=== PATIENT | male | born 1960 | race Caucasian/White ===

== ENCOUNTER 2021-05-15 06:25 | Day surgery (SDC) | payer BC, SELFPAY ==
[2021-05-08 14:47] VITALS: BMI 30.8
--- NOTE | 2021-05-12 12:24 | HO.ANESPROP2 ---
Documented by User: Celestina Cervantes NP 05/12/21 12:24 HPI - Anesthesia Eval Consult details Narrative: 61yo M for Upper Endoscopy and Colonoscopy [facility] Past Medical History Medical History Anxiety Arthritis Barretts esophagus COPD (chronic obstructive pulmonary disease) Elevated cholesterol GERD (gastroesophageal reflux disease) Hiatal hernia HTN (hypertension) Renal calculi Surgical History Surgical History H/O colonoscopy History of ankle surgery History of esophagogastroduodenoscopy (EGD) History of repair of hiatal hernia Hx of excision of mass Hx of right inguinal hernia repair Social History Social History Patient Tobacco Use Status: Former Tobacco user Quit Date: age 31 Tobacco use type: Cigarette Advance Directives Information Provided: Yes (informational brochure mailed) Advance Directives on File: No Meds Allergies Allergy/AdvReac Type Severity Reaction Status Date / Time No Known Allergies Allergy Verified 05/08/21 14:43 [No Known Allergies*] Home Medications Medication Instructions Recorded Confirmed Last Taken Type atorvastatin 20 mg tablet 20 mg PO DAILY 05/08/21 05/08/21 Unknown History lorazepam 1 mg tablet 1 mg PO BID PRN 05/08/21 05/08/21 Unknown History metoprolol succinate 50 mg 1 tab PO DAILY 05/15/21 05/15/21 05/15/21 History tablet,extended release 24 hr Exam Exam Date and Time: May 12, 2021 1224 Height,Weight and Vital Signs: Height 5 ft 9 in Weight 94.801 kg Assessment and Plan Assessment Anesthesia Assessment: Chart Reviewed Documented by User: Karolyn Young MD 05/15/21 07:42 [facility] Past Medical History Medical History Anxiety Arthritis Barretts esophagus COPD (chronic obstructive pulmonary disease) Elevated cholesterol GERD (gastroesophageal reflux disease) Hiatal hernia HTN (hypertension) Renal calculi Functional capacity: wheelchair bound Surgical History Surgical History H/O colonoscopy History of ankle surgery History of esophagogastroduodenoscopy (EGD) History of repair of hiatal hernia Hx of excision of mass Hx of right inguinal hernia repair History of Problems with Anesthesia: No Social History Social History Patient Tobacco Use Status: Former Tobacco user Quit Date: age 31 Tobacco use type: Cigarette Advance Directives Information Provided: Yes (informational brochure mailed) Advance Directives on File: No Meds Allergies Allergy/AdvReac Type Severity Reaction Status Date / Time No Known Allergies Allergy Verified 05/08/21 14:43 [No Known Allergies*] Home Medications Medication Instructions Recorded Confirmed Last Taken Type atorvastatin 20 mg tablet 20 mg PO DAILY 05/08/21 05/08/21 Unknown History lorazepam 1 mg tablet 1 mg PO BID PRN 05/08/21 05/08/21 Unknown History metoprolol succinate 50 mg 1 tab PO DAILY 05/15/21 05/15/21 05/15/21 History tablet,extended release 24 hr Exam Airway Mallampati Class: II TM Dist: >3cm Neck ROM: Full Loose/Missing/Broken Teeth: No Heart: RRR Lungs: CTA Assessment and Plan Assessment Anesthesia Assessment: Anesthesia Plan Discussed Final Anesthetic Review History of Problems with Anesthesia: No NPO: Yes ASA Class: II Final Preanesthetic Review: Meds/Allgs Chart Reviewed, Consent Obtained/Reviewed and Anes Risks/Benef Reviewed Patient Risk: Low Procedure Risk: Intermediate Anesthetic Plan Anesthetic Plan: MAC: Disposition: Standard PACU
[2021-05-15 06:48] VITALS: BP 160/101; PULSE 98; RESP 16; TEMP 36.9; O2SAT 97
[2021-05-15 06:56] VITALS: BP 154/103; PULSE 86; RESP 16
[2021-05-15] MEDS: Lactated Ringers 1,000 ML 100 ML IVCONT (06:56)
[2021-05-15 08:40] VITALS: BP 105/73; PULSE 75; RESP 16; TEMP 36.9; O2SAT 96
--- NOTE | 2021-05-15 08:42 | PM.OP ---
Brief Operative Note Date of Service: 05/15/21 Pre-op diagnosis: Fan's esophagus, Screening Post-op diagnosis: other (Gastritis, Small HH, Small areas of Fan's esophagus, Colon polyps) Procedure: EGD with bx, Colonoscopy to the cecum w/bx removal of polyps Surgeon: Derik Drummond Anesthesia: MAC Was an Rabbit Breeder used for this Procedure?: No Estimated blood loss (mL): 3.0 Pathology: other (A. Gastric antrum B. EG Junction at 37cm C. Cecal polyp D. Polyp at 50cm E. Polyp at 20cm) Condition: stable Disposition: PACU
[2021-05-15 08:55] VITALS: BP 134/92; PULSE 76; RESP 16; TEMP 36.9; O2SAT 99
--- NOTE | 2021-05-15 14:51 | OP_ITS ---
SURGEON: Derik Drummond MD INDICATIONS: The patient presents for evaluation of Fan's esophagus and personal history of colon polyps. Full consent has been obtained from him for both procedures, including risks of bleeding and perforation. PREOPERATIVE DIAGNOSIS: POSTOPERATIVE DIAGNOSIS: PROCEDURE PERFORMED: Esophagogastroduodenoscopy with biopsies, and colonoscopy to the cecum with biopsy and removal of polyps. ESTIMATED BLOOD LOSS: COMPLICATIONS: ANESTHESIA: Monitored anesthesia care. ASSISTANTS: SPECIMENS: PREOPERATIVE DIAGNOSES: History of Fan's esophagus, personal history of tubular adenoma of the colon, and colorectal cancer screening. POSTOPERATIVE DIAGNOSES: History of Fan's esophagus, personal history of tubular adenoma of the colon, and colorectal cancer screening, small hiatal hernia, mild gastritis, small colon polyps, diverticulosis, and internal hemorrhoids. DESCRIPTION OF PROCEDURE: The patient was placed in the left lateral decubitus position. The Olympus video gastroscope was passed in the posterior oropharynx and upper esophagus under direct vision. The scope was passed slowly into the distal esophagus. The gastroesophageal junction appeared at 37 cm. This area was slightly irregular with less than 1 cm areas of possible Fan's mucosa. There was no evidence of any esophagitis, lesions, nor ulceration. The scope entered into the stomach. There was an evidence of small hiatal hernia, and the scope was advanced to the pylorus. The duodenum was cannulated the descending portion. The duodenum including the bulb appeared normal without mass or ulceration. The scope was withdrawn back into the stomach. The gastric antrum had some mild areas of erythema and edema with minimal friability. There were no erosions or ulceration. There was good peristalsis. Biopsies were obtained from the antrum. The scope was retroflexed visualizing the proximal stomach carefully, which appeared normal, without any sign of mass or ulceration. The previous fundoplication anatomy appeared intact. The scope was straightened out and withdrawn back in the esophagus. Multiple biopsies were obtained at the EG junction at 37 cm from the areas of probable Fan's mucosa. Proximal to this, the esophageal mucosa appeared normal. The scope was withdrawn from the patient. He was turned around for colonoscopy. The digital rectal exam revealed no abnormalities. The Olympus video pediatric colonoscope was entered into the rectum and advanced easily to the cecum. Once in the cecum, I did identify normal-appearing cecal pouch other than a 4 mm polyp in the cecum, which was biopsied and completely removed with cold biopsy forceps. The remainder of the cecum, including the appendiceal orifice and ileocecal valve appeared normal. The scope was slowly withdrawn assessing all mucosal surfaces carefully. Preparation was excellent. At 50 cm and at 20 cm, were flat less than 5 mm polyps, which were each biopsied and completely removed with cold biopsy forceps. I did not visualize any other polyps, colitis, nor angiodysplasia. There was a mild amount of sigmoid diverticulosis. In the rectum, scope was retroflexed visualizing internal hemorrhoids, but no other pathology. The rectal mucosa appeared normal. The scope was straightened out and withdrawn from the patient. He tolerated the procedure well and was returned to the recovery area in stable condition. IMPRESSION: 1. History of Fan's esophagus, rule out dysplasia. 2. Small hiatal hernia. 3. Mild gastritis. 4. Small colon polyps, status post biopsy and removal. 5. Diverticulosis. 6. Internal hemorrhoids. PLAN: The results of the biopsy will be checked. I would recommend a repeat colonoscopy in 5 years for further surveillance. If there is no dysplasia within the Fan's mucosa, I would recommend a repeat upper endoscopy in 3 years. He was advised not to use any aspirin and NSAIDs for 1 week. This has been discussed with his . MD DONYA Morris/SERENA / [id number]
== END 2021-05-15 09:32 | disposition home or self-care (01) ==
PROVIDERS: PCP Internal Medicine; Visit Provider Internal Medicine
PROC: (CPT 45380; principal; 2021-05-15 07:30)
DX: Z12.11 Encounter for screening for malignant neoplasm of colon (principal); Z86.010 Personal history of colon polyps; D12.0 Benign neoplasm of cecum; D12.5 Benign neoplasm of sigmoid colon; K57.30 Diverticulosis of large intestine without perforation or abscess without bleeding; K64.8 Other hemorrhoids; K21.9 Gastro-esophageal reflux disease without esophagitis; K29.50 Unspecified chronic gastritis without bleeding; K22.70 Barrett's esophagus without dysplasia; Z80.0 Family history of malignant neoplasm of digestive organs; I10 Essential (primary) hypertension; J44.9 Chronic obstructive pulmonary disease, unspecified; Z79.899 Other long term (current) drug therapy; Z87.891 Personal history of nicotine dependence
CPT/HCPCS: 45380; 43239; 88305; 88342; J2250; J3010

== ENCOUNTER 2022-03-24 08:22 | Outpatient (REF) | payer BC, SELFPAY ==
[2022-03-24 08:45] LABS: MANUAL DIFF FLAG NO
[2022-03-24 09:12] LABS: Basophils Absolute Auto 0.1 X10*3/uL (0.0-0.2); Eosinophils Absolute Auto 0.2 X10*3/uL (0.0-0.4); Eosinophils Percent Auto 3.1 % (0-4); Hematocrit 44.6 % (42.0-52.0); Hemoglobin 15.4 g/dl (14.0-18.0); Imm Gran Abs Auto 0.01 X10*3/uL (0.00-0.03); Imm Gran Pct Auto 0.2 % (0.0-0.4); Lymphocytes Absolute Auto 1.7 X10*3/uL (1.2-4.9); Mean Corpuscular HGB Conc 34.5 g/dl (31.0-36.0); Mean Corpuscular Hemoglobin 33.1 pg (27.0-33.0); Mean Corpuscular Volume 95.9 fL (80.0-98.0); Mean Platelet Volume 9.5 fL (9.4-12.4); Monocytes Absolute Auto 0.5 X10*3/uL (0.1-1.2); Monocytes Percent Auto 9.4 % (2-11); Neutrophils Absolute Auto 2.8 x10*3/uL (2.0-8.3); Neutrophils Percent Auto 53.3 % (45-73); Platelet Count 238 X10*3/uL (160-400); Red Blood Count 4.65 X10*6/uL (4.60-5.80); Red Cell Distribution Width 12.9 % (11.0-16.0); White Blood Count 5.2 X10*3/uL (4.8-10.8)
[2022-03-24 09:24] LABS: Appearance Urine Clear; Color Urine Yellow; Glucose Urine UA Negative (Negative); Leukocyte Esterase Urine Trace (Negative); Nitrite Urine Negative (Negative); PH 6.5 (5.0-9.0); UMIC TRIGGER UA YES; Urine Blood Negative (Negative); Urine Ketones Negative (Negative); Urine Protein Negative (Neg-Trace)
[2022-03-24 09:27] LABS: Bacteria Urine None Seen (None Seen); Hyaline Casts Urine 0-2 /LPF (0-2); Squamous Epithelial Cell Urine 0-2 /HPF (0-2); WBC Urine 0-5 /HPF (0-5)
[2022-03-24 09:51] LABS: Alanine Aminotransferase 30 U/L (0-40); Albumin Level 4.2 g/dL (3.5-5.0); Alkaline Phosphatase 81 U/L (39-117); Anion Gap 15 (12-20); Aspartate Amino Transferase 24 U/L (5-37); Blood Urea Nitrogen 18 mg/dL (9-16); Calcium 9.7 mg/dL (8.4-10.2); Carbon Dioxide 27 mmol/L (22-29); Chloride 106 mmol/L (96-108); Cholesterol 151 mg/dL; Estimated Glomerular Filt Rate > 60; Glucose Random 101 mg/dL (60-115); HDL Cholesterol 69 mg/dL; LDL Cholesterol Calculated 73 mg/dl; Potassium 4.9 mmol/L (3.3-5.1); Sodium 143 mmol/L (135-145); Triglycerides 45 mg/dL
[2022-03-24 10:13] LABS: Free T4 (Free Thyroxine) 0.96 ng/dL (0.71-1.85); Prostate Specific Antigen 0.64 ng/mL (<0.05-4.0); Thyroid Stimulating Hormone 0.54 uIU/mL (0.32-4.0)
== END 2022-03-24 08:23 | disposition home or self-care (01) ==
LOC: HO.LAB 08:22
PROVIDERS: PCP Internal Medicine; Visit Provider Internal Medicine
DX: E78.00 Pure hypercholesterolemia, unspecified (principal); R53.81 Other malaise; R53.83 Other fatigue; R35.1 Nocturia; Z12.5 Encounter for screening for malignant neoplasm of prostate
CPT/HCPCS: 36415; 80053; 80061; 81001; 84153; 84439; 84443; 85025

== ENCOUNTER 2022-12-28 11:51 | Outpatient (REF) | payer BC, SELFPAY ==
--- NOTE | ~2022-12-28 | XR_ITS ---
EXAMINATION: XR CHEST CLINICAL INFORMATION: Dyspnea COMPARISON: Previous chest x-ray most recent June [address] most recent December 2017 TECHNIQUE: 2 views of the chest were obtained. FINDINGS: No significant abnormality is noted involving the heart, lungs, mediastinum, bony thorax or soft tissues. Degenerative changes of the spine. XR/XR chest 2V IMPRESSION: No evidence for acute disease in the chest.
--- NOTE | ~2022-12-28 | XR_ITS ---
EXAMINATION: XR HAND, RIGHT CLINICAL INFORMATION: Pain in right hand COMPARISON: None available. TECHNIQUE: PA, lateral, and oblique views, 4 views total, of the right hand. FINDINGS: Moderate degenerative changes in the first carpometacarpal joint with joint space narrowing and hypertrophic change. Tiny corticated ossicle at the radial aspect of the first carpometacarpal joint of indeterminate age. STT degenerative changes. Possible tiny faint calcification/ossicle in the soft tissues at the ulnar aspect of the wrist. Moderate degenerative changes with joint space narrowing and hypertrophic change most notable in the first IP, second DIP, third DIP, first MCP and second metacarpophalangeal joints. XR/XR hand RT min 3V IMPRESSION: Degenerative changes in the wrist and scattered IP joints as detailed above. Soft tissue calcifications as described. Recommend follow-up imaging in 10-14 days if fracture is suspected.
== END 2022-12-28 11:52 | disposition home or self-care (01) ==
LOC: HO.XRAY 11:51
PROVIDERS: Visit Provider Internal Medicine
DX: R06.09 Other forms of dyspnea (principal); M79.641 Pain in right hand
CPT/HCPCS: 71046; 73130

== ENCOUNTER 2023-04-18 08:20 | Outpatient (AMB) | payer BC, SELFPAY ==
--- NOTE | 2023-04-18 08:33 | A.OFFVIS_ITS ---
Intake Vital Signs 04/18/23 08:34 Height 5 ft 9 in Weight 208 lb 1.862 oz BMI 30.7 BP 130/88 Blood Pressure Location Lt brachial Position Sitting Pulse 85 Intake Visit Reasons: NPV/Dyspnea/Dr. Blankenship Intake Note: NPV Destination Coordinator Required: No Accompanied by: Self / Same As Patient Allergies No Known Allergies [No Known Allergies*] Allergy (Verified 04/18/23 08:34) Medication List - Last Reconciled 04/18/23 by Emeka Coy MD alfuzosin ER 10 mg PO DAILY atorvastatin 20 mg PO DAILY celecoxib mg PO BID lorazepam 1 mg PO BID PRN metoprolol succinate ER 50 mg PO DAILY HPI HPI Comments History of Present Illness Details Timoteo is here for consultation regarding shortness of breath. No known coronary artery disease or myocardial infarction or cardiomyopathy. Prior history of smoking and he also has COPD. He states that he does get short of breath with activity. This has been going on for many years, off and on. When he was in [place], he was apparently exerting a lot and climbing as much as 5 flights of stairs. That seems a lot but he states that he was getting very short of breath at those times. At other instances, even shorter distances making short of breath. No clear anginal-type chest pains. He has been re ferred here for evaluation of cardiac causes of symptoms. [facility] Medical History Anxiety Arthritis Barretts esophagus COPD (chronic obstructive pulmonary disease) Elevated cholesterol GERD (gastroesophageal reflux disease) Hiatal hernia HTN (hypertension) Renal calculi Surgical History Hx of excision of mass History of repair of hiatal hernia History of ankle surgery Hx of right inguinal hernia repair History of esophagogastroduodenoscopy (EGD) H/O colonoscopy Family History (Updated 04/18/23 @ 08:37 by Diana Contreras) Maternal Grandfather Heart attack Mother No problems noted. Father No problems noted. Social History (Updated 04/18/23 @ 08:38 by Diana Contreras) Alcohol intake: current Alcohol intake frequency: 0-2 drinks per day Alcohol type: beer Patient Tobacco Use Status: Former Tobacco user Quit Date: age 31 Tobacco use type: Cigarette Review of Systems Const Denies chills, Denies daytime sleepiness, Denies fatigue, Denies fever(s), Denies frequent falls, Denies night sweats, Denies snoring, Denies weakness, Denies weight gain and Denies weight loss Eyes Denies loss of vision ENT Denies dizziness and Denies hearing loss Card Denies chest pain, Denies chest pain with activity, Denies syncope, Denies rapid heart rate, Denies edema, Denies claudication, Denies leg edema, Denies lightheadedness, Denies palpitations, Denies dyspnea, Denies dyspnea on exertion and Denies orthopnea Resp Denies cough, Denies excessive phlegm production, Denies dyspnea, Denies dyspnea on exertion, Denies snoring and Denies wheezing GI Denies abdominal pain, Denies hematochezia, Denies change in bowel habits, Denies change in stool character, Denies heartburn, Denies nausea and Denies vomiting Denies hematuria, Denies dysuria and Denies urinary frequency Musc Denies arthralgias, Denies muscle weakness, Denies numbness and Denies tingling Skin/Breast Denies nail changes and Denies rash Neuro Denies Abnormal speech present, Denies dizziness, Denies syncope, Denies frequent falls, Denies loss of vision, Denies memory loss, Denies numbness, Denies tingling and Denies weakness Psych Denies depression and Denies memory loss Endo Denies fatigue and Denies palpitations Aller/Immun Denies wheezing Physical Exam Vital Signs: Last Vital Signs Pulse 85 04/18/23 08:34 BP 130/88 04/18/23 08:34 BMI result Body Mass Index 30.7 Const General: comfortable and no acute distress Orientation/consciousness: patient oriented x3 HEENT Other: Unremarkable Head: Yes normal to inspection Neck Neck: Yes normal visual inspection Chest Chest palpation & inspection: normal inspection of the chest Resp Auscultation: clear to auscultation bilaterally Cardio Palpation: normal PMI Heart sounds: S1 normal heart sound present, S2 normal heart sound present, no gallops, no murmurs and no rubs GI Palpation (GI): Soft to palpation Back/Spine/Pelvis Other: unremarkable Skin General skin exam: no rashes or lesions noted Neuro General: patient oriented x3 Speech: No Abnormal speech present Extrem General: Yes normal to inspection Psych Mental Status: mental status grossly normal Assessment & Plan Assessment & Plan (1) Shortness of breath: Code(s): R06.02 - Shortness of breath Plan EKG from PCP shows sinus rhythm at 65/Min; no significant ST-T changes and otherwise unremarkable. Normal LA and corrected QT. From cardiac standpoint, will need assessment for cardiomyopathy as well as coronary disease. We can get echocardiogram and stress test for further evaluation. If these come back unremarkable, then etiology of shortness of breath could be just COPD/deconditioning. Plan discussed with patient and he is agreeable for the same. Follow-up after testing. Orders: Orders CA stress test Today I25.10 - Atherosclerotic heart disease of [place] coronary artery without angina pectoris, R06.02 - Shortness of breath CA echo transthoracic complete Today R06.02 - Shortness of breath NM cardiolite stress test Today R06.02 - Shortness of breath Coding Level of Care Code New Pt Level 4 (95740) Diagnoses Shortness of breath R06.02
[2023-04-18 08:34] VITALS: BP 130/88; PULSE 85; BMI 30.7
== END 2023-04-18 08:49 | disposition home or self-care (01) ==
PROVIDERS: PCP Internal Medicine; Visit Provider Internal Medicine
DX: R06.02 Shortness of breath (principal)
CPT/HCPCS: 99204

== ENCOUNTER → 2023-04-18 08:20 | Outpatient (BNVA) | payer BC, SELFPAY | PROVIDERS: PCP Internal Medicine; Visit Provider Internal Medicine ==

== ENCOUNTER → 2023-06-04 07:46 | Outpatient (REF) | payer BC, SELFPAY ==
--- NOTE | ~2023-06-04 | NM_ITS ---
Myocardial perfusion study Indication: Shortness of breath evaluate for myocardial ischemia Technique: The patient was brought in for a Lexiscan perfusion study on 06/04/2023. Patient performed low-level exercise and was injected 0.4 mg of Lexiscan intravenously. Within a minute of injection, 35 mCi of sestamibi was given intravenously. Images were obtained using the SPECT gamma camera interlaced with the gating device. Images were obtained in supine position. Resting perfusion study was performed on 06/07/2023. Patient was administered 35 mCi of sestamibi intravenously at rest. Images were then obtained in supine position. Images obtained with and without CT attenuation. Total DLP 89 mGy-cm. Images were processed with the software and compared side to side in short axis, horizontal long axis and vertical long axis views. Findings: The stress perfusion study showed non attenuated images show mildly reduced uptake in the inferior wall of the LV myocardium. Remainder of the LV myocardium is normally perfused. Attenuation corrected images show normal uptake of radiotracer in all segments of LV myocardium. The gated study shows normal LV systolic function with calculated LVEF of 58%. LV cavity is normal in size. The gated study shows normal systolic wall thickening and contraction of segments. Resting study shows no change in perfusion pattern compared to stress perfusion study. Gating at rest reveals normal systolic wall motion with ejection fraction at 53%. The findings are consistent with normal myocardial perfusion. NM/NM cardiolite stress test Impression: 1. Myocardial perfusion imaging study shows normal myocardial perfusion 2. Gated LVEF is 58% 3. Transient ischemic dilatation not present EKG is nondiagnostic for ischemia
--- NOTE | 2023-06-04 07:50 | CA_ITS ---
Acquisition Time: 2023-06-04 08:46:39 Total Exercise Time: 00:05:34 Test Indications: Dyspnea Medications: ATORVASTATIN CELEBREX METOPROLOL LORAZAPAM Protocol: JASPREET Max HR: 125 BPM 79% of Pred: 157 BPM Max BP: 200/090 mmHG Max Work Load: 7.0 METS Exercise stress test exercise 5 min 34 sec of jaspreet protocol achieiving 78% MPHR, with moderate SOB, no chest discomfort, without arrhythmias, with max BP 200/90, with nondiagnostic EKGs. PT assisted to sitting position and breathing returned to normal. Once breathing and BP returned to baseline test changed to pharmacological stress test with Lexiscan, with mild SOB., no chest discomfort, without arrhythmias,with normotensive response to injection, with nondiagnositic EKGs. Aminophyline 75mg IVP given to reverse Lexiscan. Test reviewed with Dr. Sanchez. Referred By: Emeka Coy Overread By: Aditi Mauro
--- NOTE | 2023-06-04 07:50 | CA_ITS ---
Transthoracic Echocardiogram Patient (Last, First, Middle): Timoteo John D Gender: Male Date of : 1960 Age: 63 Procedure Date: 06/04/2023 Procedure Type: Transthoracic Echocardiogram Location: OP Height: 170.18 cm Weight: 97.52 kg BSA: 2.09 m2 Heart Rate: bpm BP: 126 / 82 mmHg Slag Wheeler: TO Referring MD: Emeka Coy MD [employer] Operator: Angel Marcos MD Symptoms: R06.02 - Shortness of breath Study Quality: Adequate ECG Rhythm: Sinus Conclusions: - 1. Normal LV ejection fraction of 55-60% with normal filling pattern 2. Normal cardiac valvular Dopplers 3. Mildly dilated ascending aorta at 4 cm 5. No gross pericardial effusion Findings Left Ventricle Normal left ventricular size, thickness, and systolic function. The visually estimated ejection fraction is between 55-60%. Spectral Doppler is indicative of a normal filling pattern. Peak GLS is -17.2%, borderline low. Right Ventricle Normal right ventricular cavity size and systolic function. Atria Both atria are normal in size. There is no evidence of interatrial shunt. Aortic Valve Normal aortic valve structure and function. There is no aortic valve stenosis. There is no aortic valve regurgitation. Mitral Valve Normal mitral valve structure and function. There is trace mitral valve regurgitation. There is no mitral valve stenosis. Pulmonic Valve The pulmonic valve is likely normal. There is trace pulmonic valve regurgitation. Tricuspid Valve Likely normal tricuspid valve structure and function. Tricuspid regurgitation envelope is inadequate for calculation of right ventricular systolic pressure. Normal right atrial pressure. Great Vessels The pulmonary artery was not well visualized. There is mild dilatation of the ascending aorta measuring 4.00 cm. Venous The inferior vena cava is normal in size and collapses greater than 50% with inspiration. Pericardium/Pleural There is no evidence of pericardial effusion. Prior Study Comparison No prior study available for comparison. Measurements 2D Linear Measurements IVSd: 0.91 0.6-0.9/0.6-1.0 cm LVIDd: 5.00 3.9-5.3/4.2-5.9 cm LVIDd Index: 2.39 2.4-3.2/2.2-3.1 cm/m2 LVIDs: 3.27 2.0-3.6 cm LVPWd: 0.89 0.7-1.1 cm LA Diam: 3.40 2.7-3.8/3.0-4.0 cm LAIDs Index: 1.63 1.5-2.3 cm/m2 LV Mass: 196.72 67-162/88-224 g LV Mass Index: 94.12 43-95/49-115 g/m2 LVOT Diam: 2.40 3.0+(-)1.3 cm 2D Systolic Function EF 4C: 57.60 >55% EF 2C: 60.20 >55% EF BiP: 58.80 >55% Mitral Valve MV Pk E: 0.57 MV PK A: 0.45 MV Decel Time: 263.00 E/A: 1.30 E'Lateral: 9.03 E'Medial: 6.20 E/E' Med: 9.30 E/E' Lat: 6.40 PHT: 77.00 MVA PHT: 2.86 Decel [place]: 2.18 Aortic Valve AoV Pk Nathanael: 1.05 AoV Mn Nathanael: 0.75 AoV VTI: 0.22 AoV Pk Grad: 4.00 Aov Mn Grad: 3.00 PAULINA Cont.VTI: 4.07 LVOT LVOT Pk Nathanael: 1.01 LVOT Mn Nathanael: 0.64 LVOT VTI: 0.20 LVOT Pk Grad: 4.00 LVOT Mn Grad: 2.00 LVOT Diam: 2.40 LVOT Area: 4.52 Diastolic Function MV Pk E: 0.57 MV Pk A: 0.45 E/A: 1.30 E'Medial: 6.20 E/E' Med: 9.30 E' Laterial: 9.03 E/E' Lat: 6.40 Right Ventricle TAPSE (mm): 24.30 TVS' Nathanael: 10.80 Tricuspid Valve RA Press: 3.00 Great Vessels Aorta Sinus of Valsalva: 3.68 2.0-3.5 cm Ao Asc: 4.00 2.1-3.4 cm Updated in Other Vendor System with Status of Final Angel Marcos MD electronically signed on 06/05/2023 4:22:40 PM with status of Final
== END ==
LOC: HO.CARD 07:46
PROVIDERS: PCP Internal Medicine; Visit Provider Internal Medicine
DX: R06.02 Shortness of breath (principal); I25.10 Atherosclerotic heart disease of native coronary artery without angina pectoris
CPT/HCPCS: 78452; 93017; 93306; 93356; A9500; J0280; J2785

== ENCOUNTER → 2023-06-04 07:50 | Outpatient (BNV) | payer BC, SELFPAY | PROVIDERS: PCP Internal Medicine; Visit Provider Nurse Practitioner | DX: R06.02 Shortness of breath (principal) | CPT/HCPCS: 78452; 93016; 93018; 93306 ==

== ENCOUNTER 2023-06-08 10:15 | Emergency (ER) | payer BC, SELFPAY ==
--- NOTE | ~2023-06-08 | US_ITS ---
EXAMINATION: US VENOUS WITH DOPPLER UPPER EXTREMITY, RIGHT CLINICAL INFORMATION: Swelling COMPARISON: None available. TECHNIQUE: Ultrasound of the upper extremity is performed using compression sonography and color and pulse Doppler flow with assessment of augmentation of flow. There is also imaging and Doppler assessment of the jugular and subclavian veins. Spectral analysis with color-flow imaging is performed. FINDINGS: Respiratory variation, normal compression, and augmented flow are noted throughout the upper extremity including the axillary, brachial, cubital, and radial and ulnar veins. There is normal flow in the internal jugular and subclavian veins. There is no visible deep or superficial thrombophlebitis. If the patient's symptoms progress, a followup ultrasound in 5 -7 days might be of value to exclude proximal propagation from a nonvisualized distal arm vein. US/US venous duplex UE RT IMPRESSION: No DVT demonstrated in the right upper extremity Note is made in the dorsum of the hand in the region of the recent nuclear medicine injection edematous appearing soft tissue and the robotic machine tender production identifies a small collection in the region measuring 5 x 3 x 6 mm.
[2023-06-08 10:37] VITALS: BP 190/105; PULSE 87; RESP 18; TEMP 35.6; O2SAT 98; BMI 30.8
--- NOTE | 2023-06-08 11:25 | PC.NURSE ---
patient a&ox3, rt hand notable swelling, pt states the swelling began last night but it was even worse last night than today, pt states he used ice and heat with some relief. + csm/pulses to the extremity, pt US performed, awating for results, will continue to monitor
--- NOTE | 2023-06-08 12:44 | ED.EXTPRO ---
HPI - Extremity Problem General Chief complaint: Extremity Injury, Upper Stated complaint: Swollen R hand reaction to injection Time Seen by Provider: 06/08/23 11:26 Source: patient Mode of arrival: ambulatory Limitations: no limitations History of Present Illness HPI Narrative: this is a 63-year-old male who is right-hand dominant who presents to the ER with complaints of right hand swelling and pain since yesterday. Patient reports that he had a nuclear medicine stress test yesterday. He had a IV placed in his right hand. He had medicine injected into the hand. He noticed some swelling immediately but did not have pain and told the IV was removed and then he noticed some leaking from the site and swelling and pain which continued last night and into this morning. He does feel the swelling today is actually better than last night. He denies any associated weakness, numbness or tingling of the extremity. No fevers or chills. Related Data Home Medications Medication Instructions Recorded Confirmed atorvastatin 20 mg tablet 20 mg PO DAILY 05/08/21 04/18/23 lorazepam 1 mg tablet 1 mg PO BID PRN Anxiety 05/08/21 04/18/23 alfuzosin 10 mg tablet,extended 10 mg PO DAILY 04/18/23 04/18/23 release 24 hr celecoxib 200 mg capsule mg PO BID 04/18/23 04/18/23 metoprolol succinate 50 mg 50 mg PO DAILY 04/18/23 04/18/23 tablet,extended release 24 hr Previous Rx's Medication Instructions Recorded doxycycline monohydrate 100 mg 100 mg PO BID #20 caps 06/08/23 capsule Allergies Allergy/AdvReac Type Severity Reaction Status Date / Time No Known Allergies Allergy Verified 06/08/23 10:40 [No Known Allergies*] Review of Systems Review of Systems: Yes all other systems are reviewed and are negative Constitutional: Constitutional: Reports no additional constitutional complaints, Denies body ache(s), Denies chills, Denies fever(s), Denies headache(s) and Denies weakness Eyes: Eyes: Reports no additional eye complaints and Denies change in vision ENT: Reports system reviewed and no additional complaints, except as documented, Denies dizziness, Denies headache(s), Denies nasal congestion, Denies nasal discharge and Denies neck pain Cardiovascular: Cardiovascular: Reports no additional cardiovascular complaints, Denies chest pain, Denies leg edema and Denies dyspnea Respiratory: Respiratory: Reports no additional respiratory complaints, Denies cough and Denies dyspnea Gastrointestinal: Gastrointestinal: Reports no additional gastrointestinal complaints, Denies abdominal pain, Denies diarrhea, Denies nausea and Denies vomiting Genitourinary: Genitourinary: Denies urinary incontinence Musculoskeletal: Musculoskeletal: Reports no additional musculoskeletal complaints, Denies back pain, Denies arthralgias, Denies joint swelling, Denies neck pain, Denies numbness and Denies tingling Integumentary/Breasts: Skin/Breast: Reports system reviewed and no additional complaints, except as docu, Reports swelling, Reports erythema and Denies rash Neurologic: Reports system reviewed and no additional complaints, except as documented, Denies Abnormal speech present, Denies dizziness, Denies headache(s), Denies numbness, Denies tingling and Denies weakness PMFSH Past Medical History Attestation statement: The following information was validated with the patient. Source: old records reviewed Medical History Arthritis COPD (chronic obstructive pulmonary disease) Hiatal hernia Barretts esophagus Anxiety Elevated cholesterol Renal calculi HTN (hypertension) GERD (gastroesophageal reflux disease) Surgical History Hx of excision of mass History of repair of hiatal hernia History of ankle surgery Hx of right inguinal hernia repair History of esophagogastroduodenoscopy (EGD) H/O colonoscopy Family History Family History Maternal Grandfather Heart attack Mother No problems noted. Father No problems noted. Social History Social History Alcohol intake: current Alcohol intake frequency: 0-2 drinks per day Alcohol type: beer Patient Tobacco Use Status: Former Tobacco user Quit Date: age 31 Tobacco use type: Cigarette Advance Directives: No Advance Directives Information Provided: No Physical Exam Vital Signs: Vital Signs: Last Vital Signs Temp 96.0 F L 06/08/23 10:37 Pulse 87 06/08/23 10:37 Resp 18 06/08/23 10:37 BP 190/105 H 06/08/23 10:37 Pulse Ox 98 06/08/23 10:37 O2 Del Method Room Air 06/08/23 10:37 BMI result Body Mass Index 30.8 Const: General: cooperative, healthy appearing, comfortable and no acute distress Orientation/consciousness: patient oriented x3 Limitations: no limitations HEENT: Head: Yes normal to inspection Ears: hearing grossly normal bilaterally General nose exam: Normal external nose present Face and sinus: Yes normal facial exam Mouth: Normal oral and palatal mucosa present Throat: Yes posterior oropharynx normal Eyes: General: appearance normal, both eyes and all related structures Pupils: Equal, round and reactive pupils present Neck: Neck: Yes normal visual inspection Chest: Chest palpation & inspection: normal inspection of the chest Resp: Effort & Inspection: normal respiratory effort Auscultation: clear to auscultation bilaterally Cardio: Rate: regular rate Rhythm: regular rhythm Peripheral pulses: Peripheral pulses 2+ throughout GI: Inspection: Yes normal to inspection Palpation (GI): Soft to palpation and nontender Auscultation: normal bowel sounds Back/Spine/Pelvis: Thoracic/Lumbar Spine: thoracic and lumbar spine normal to inspection Skin: General skin exam: no rashes or lesions noted Neuro: General: patient oriented x3, no focal motor deficits and normal sensation to monofilament Cranial nerves: Yes Equal, round and reactive pupils present Cognition (Neuro): normal cognition Speech: No Abnormal speech present Gait exam (Neuro): Normal gait present Motor exam (neuro): 5/5 motor strength present throughout Extrem: Other: Patient will full active/passive ROM of hand/wrist. Compartments are soft and compressible Mild tenderness to palp over the dorsal hand Course Course Course Narrative: US negative for DVT. plan for discharge home. Medical Decision Making Medical Decision Making [facility] Narrative: this is a 63-year-old male who is right-hand dominant who presents to the ER with complaints of right hand swelling and pain since yesterday. Patient reports that he had a nuclear medicine stress test yesterday. He had a IV placed in his right hand. He had medicine injected into the hand. He noticed some swelling immediately but did not have pain and told the IV was removed and then he noticed some leaking from the site and swelling and pain which continued last night and into this morning. He does feel the swelling today is actually better than last night. He denies any associated weakness, numbness or tingling of the extremity. No fevers or chills. See pictures in PE Patient will full active/passive ROM of hand/wrist. Compartments are soft and compressible Mild tenderness to palp over the dorsal hand Will obtain US Likely extravasation/infiltration from IV placement yesterday I do not appreciate and warmth or limited ROM to suggest septic joint or even cellulitis however as this is patients dominant hand I will initiate a course of antibiotics as well as recommend elevation, warm compresses Differential Diagnosis Differential Diagnoses: The differential diagnosis associated with the presentation includes phlebitis iv infiltration cellulitis septic joint dvt Admission/Observation Consideration of admission/observation: Escalation of care including admission/observation considered Mild swelling with soft compartments so low concern for compartment syndrome/systemic infection requiring advanced imaging, surgery consultation, and or admission Independent Interpretation I performed an independent interpretation of an: Ultrasound Interpretation: I independently reviewed the US and agree with the rad report Radiology Impression Discussion of test interpretation with radiology: I have reviewed the radiologist's reading. Radiologist Impression: [address] [address] Ultrasound Report Signed Patient: Timoteo John MR#: [id number] : 1960 Acct:[id number] Age/Sex: 63 / M ADM Date: 06/08/23 Loc: HO.ED Attending Dr: Ordering Physician: Ken Mora MD Date of Service: 06/08/23 Procedure(s): US venous duplex UE RT Accession Number(s): [id number] cc: Ebenezer Blankenship MD; Ken Mora MD~ EXAMINATION: US VENOUS WITH DOPPLER UPPER EXTREMITY, RIGHT CLINICAL INFORMATION: Swelling COMPARISON: None available. TECHNIQUE: Ultrasound of the upper extremity is performed using compression sonography and color and pulse Doppler flow with assessment of augmentation of flow. There is also imaging and Doppler assessment of the jugular and subclavian veins. Spectral analysis with color-flow imaging is performed. FINDINGS: Respiratory variation, normal compression, and augmented flow are noted throughout the upper extremity including the axillary, brachial, cubital, and radial and ulnar veins. There is normal flow in the internal jugular and subclavian veins. There is no visible deep or superficial thrombophlebitis. If the patient's symptoms progress, a followup ultrasound in 5 -7 days might be of value to exclude proximal propagation from a nonvisualized distal arm vein. US/US venous duplex UE RT IMPRESSION: No DVT demonstrated in the right upper extremity Note is made in the dorsum of the hand in the region of the recent nuclear medicine injection edematous appearing soft tissue and the clinical technician identifies a small collection in the region measuring 5 x 3 x 6 mm. Prescription Management I considered prescription management with: Antibiotic Discharge Plan Discharge Clinical Impression: Intravenous infiltration Patient Disposition: Home, Self-Care Instructions: IV Infiltration (ED) Additional Instructions: Elevate the extremity Apply warm compresses Return for increasing pain, redness, swelling or fever >100.4 as discussed Prescriptions: New doxycycline monohydrate 100 mg capsule 100 mg PO BID Qty: 20 0RF No Action atorvastatin 20 mg Tablet 20 mg PO DAILY lorazepam 1 mg Tablet 1 mg PO BID PRN (Reason: Anxiety) metoprolol succinate 50 mg tablet extended release 24 hr 50 mg PO DAILY celecoxib 200 mg capsule PO BID alfuzosin 10 mg tablet extended release 24 hr 10 mg PO DAILY Referrals: Ebenezer Blankenship MD [Primary Care Provider] - 1 week
--- NOTE | 2023-06-08 13:28 | PC.NURSE ---
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
== END 2023-06-08 13:28 | disposition home or self-care (01) ==
PROVIDERS: Emergency Provider Emergency Medicine; PCP Internal Medicine
DX: M79.641 Pain in right hand (principal); M79.89 Other specified soft tissue disorders; T80.89XA Other complications following infusion, transfusion and therapeutic injection, initial encounter; Y82.8 Other medical devices associated with adverse incidents; Y92.538 Other ambulatory health services establishments as the place of occurrence of the external cause; I10 Essential (primary) hypertension; E78.5 Hyperlipidemia, unspecified; Z79.02 Long term (current) use of antithrombotics/antiplatelets; Z79.899 Other long term (current) drug therapy
CPT/HCPCS: 93971; 99282; 99284

== ENCOUNTER 2023-12-31 06:05 | Outpatient (REF) | payer BC, SELFPAY ==
[2023-12-31 06:16] LABS: MANUAL DIFF FLAG NO
[2023-12-31 07:40] LABS: Basophils Absolute Auto 0.1 X10*3/uL (0.0-0.2); Eosinophils Absolute Auto 0.2 X10*3/uL (0.0-0.4); Eosinophils Percent Auto 3.1 % (0-4); Hematocrit 41.7 % (42.0-52.0); Imm Gran Abs Auto 0.02 X10*3/uL (0.00-0.03); Imm Gran Pct Auto 0.4 % (0.0-0.4); Lymphocytes Absolute Auto 1.6 X10*3/uL (1.2-4.9); Lymphocytes Percent Auto 32.1 % (20-40); Mean Corpuscular HGB Conc 33.6 g/dl (31.0-36.0); Mean Corpuscular Volume 98.3 fL (80.0-98.0); Monocytes Absolute Auto 0.6 X10*3/uL (0.1-1.2); Monocytes Percent Auto 11.6 % (2-11); Neutrophils Absolute Auto 2.6 x10*3/uL (2.0-8.3); Neutrophils Percent Auto 51.8 % (45-73); Platelet Count 226 X10*3/uL (160-400); Red Blood Count 4.24 X10*6/uL (4.60-5.80); Red Cell Distribution Width 12.8 % (11.0-16.0); White Blood Count 5.1 X10*3/uL (4.8-10.8)
[2023-12-31 08:01] LABS: Estimated Average Glucose 105 mg/dL; Hemoglobin A1c % 5.3 % (<6.0)
[2023-12-31 08:15] LABS: Alanine Aminotransferase 26 U/L (0-40); Albumin Level 3.8 g/dL (3.5-5.0); Alkaline Phosphatase 80 U/L (39-117); Anion Gap 12 (12-20); Aspartate Amino Transferase 27 U/L (5-37); Bilirubin Total 0.4 mg/dL (0.0-1.0); Blood Urea Nitrogen 21 mg/dL (9-16); Calcium 9.5 mg/dL (8.4-10.2); Carbon Dioxide 29 mmol/L (22-29); Chloride 107 mmol/L (96-108); Cholesterol 144 mg/dL (<200); Estimated Glomerular Filt Rate > 60; Glucose Random 94 mg/dL (60-115); HDL Cholesterol 63 mg/dL (>40); LDL Cholesterol Calculated 72 mg/dL (<100); Potassium 4.5 mmol/L (3.3-5.1); Sodium 143 mmol/L (135-145); Total Protein 6.5 g/dL (6.5-8.0); Triglycerides 48 mg/dL (<150)
[2023-12-31 08:25] LABS: Prostate Specific Antigen Scr 1.28 ng/mL (<0.05-4.0)
[2023-12-31 08:34] LABS: Thyroid Stimulating Hormone 1.01 uIU/mL (0.32-4.0)
== END 2023-12-31 06:06 | disposition home or self-care (01) ==
LOC: HO.LAB 06:05
PROVIDERS: PCP Internal Medicine; Visit Provider Internal Medicine
DX: E78.00 Pure hypercholesterolemia, unspecified (principal); I10 Essential (primary) hypertension; Z12.5 Encounter for screening for malignant neoplasm of prostate
CPT/HCPCS: 36415; 80053; 80061; 83036; 84153; 84443; 85025

== ENCOUNTER 2024-01-06 09:31 | Outpatient (REF) | payer BC, SELFPAY ==
--- NOTE | ~2024-01-06 | US_ITS ---
EXAMINATION: US VENOUS ULTRASOUND WITH DOPPLER LOWER EXTREMITY, RIGHT CLINICAL INFORMATION: Right knee pain COMPARISON: None available. TECHNIQUE: Ultrasound of the deep veins is performed from the hip to the calf with compression sonography and color and pulse Doppler assessment. Spectral analysis with color-flow imaging is performed. FINDINGS: There is normal venous compression and respiratory variation and augmented flow. The visualized common femoral vein, superficial femoral vein, profunda femoral vein, popliteal vein, and the trifurcation region shows no evidence of deep venous thrombosis. There is a complex collection in the right medial knee measuring 3.6 x 1.1 x 1.3 cm. No posterior collection. If the patient's symptoms persist, followup ultrasound in 5 days 7 days might be of value to exclude proximal propagation from a non-visualized calf vein. US/US venous duplex LE RT IMPRESSION: No DVT demonstrated in the right lower extremity.
== END 2024-01-06 09:32 | disposition home or self-care (01) ==
LOC: HO.US 09:31
PROVIDERS: PCP Internal Medicine; Visit Provider Internal Medicine
DX: M79.604 Pain in right leg (principal)
CPT/HCPCS: 93971